=== PATIENT | male | born 1980 | race Caucasian/White ===

== ENCOUNTER 2018-06-12 01:30 | Emergency (ER) | payer MEDICAID ==
[~2018-06-12] VITALS: Ht 190.5 cm; Wt 95.4 kg
[2018-06-12 05:48] VITALS: BP 134/50
== END 2018-06-12 04:05 ==
LOC: ER 01:32
DX: S06.0X0A Concussion without loss of consciousness, initial encounter (principal); S61.212A Laceration without foreign body of right middle finger without damage to nail, initial encounter; S01.81XA Laceration without foreign body of other part of head, initial encounter; S05.11XA Contusion of eyeball and orbital tissues, right eye, initial encounter; F10.129 Alcohol abuse with intoxication, unspecified; H11.31 Conjunctival hemorrhage, right eye; F12.90 Cannabis use, unspecified, uncomplicated; F17.210 Nicotine dependence, cigarettes, uncomplicated; Z02.89 Encounter for other administrative examinations; W18.49XA Other slipping, tripping and stumbling without falling, initial encounter; Y93.89 Activity, other specified; Y92.89 Other specified places as the place of occurrence of the external cause; Y99.9 Unspecified external cause status; Y90.0 Blood alcohol level of less than 20 mg/100 ml
CPT/HCPCS: 12001; 12011; 70450; 70486; 99284

== ENCOUNTER 2018-07-08 09:04 | Emergency (ER) | payer MEDICAID ==
[~2018-07-08] VITALS: Ht 190.5 cm; Wt 95.5 kg
[2018-07-08 09:25] VITALS: BP 119/62
== END 2018-07-08 10:24 | disposition home or self-care (01) ==
LOC: ER 09:05
DX: S61.212D Laceration without foreign body of right middle finger without damage to nail, subsequent encounter (principal); F12.90 Cannabis use, unspecified, uncomplicated; Z59.0 Homelessness; W18.49XD Other slipping, tripping and stumbling without falling, subsequent encounter
CPT/HCPCS: 29130; 99283